=== PATIENT | male | born 1985 | race African-American/Black ===

== ENCOUNTER 2022-11-21 23:20 | Emergency (ER) | payer MEDICAID ==
[~2022-11-21] VITALS: Ht 175.3 cm; Wt 90.7 kg
--- NOTE | 2022-11-21 23:32 | NUR ---
Dr. Cota examining patient.
--- NOTE | 2022-11-21 23:36 | NUR ---
PT BIBA BLS TAKEN TO BED 6
[2022-11-21 23:39] VITALS: BP 118/81; PULSE 93; RESP 14; TEMP 97.9; O2SAT 100
[2022-11-21] MEDS ORDERED: ACETAMINOPHEN EXTRA STRENGTH 500 MG TAB PO ONE (23:45)
--- NOTE | 2022-11-22 00:11 | NUR ---
Patient resting in bed, A/Ox4, chest rise and fall symmetrical, no s/s of distress, on monitor, seizure pads/precautions in place
[2022-11-22] MEDS ORDERED: IBUPROFEN 600 MG TAB PO ONE (00:50)
--- NOTE | 2022-11-22 02:00 | NUR ---
Patient resting in bed, A/Ox4, chest rise and fall symmetrical, no s/s of distress, on monitor, seizure pads/precautions in place
[2022-11-22 02:14] VITALS: BP 121/87; PULSE 78; RESP 16; TEMP 98.1; O2SAT 99
--- NOTE | 2022-11-22 02:14 | NUR ---
Patient discharged with v/s stable. Written and verbal after care instructions given and explained. Patient verbalized understanding. with . All questions addressed prior to discharge. Advised to follow up with PMD.
[2022-11-23] MEDS ORDERED: CEPH-588 PO (13:29)
[2022-11-23] MEDS ORDERED: IBUP-1842 PO (13:29)
[2022-11-23] MEDS ORDERED: SULF-59 PO (13:29)
== END 2022-11-22 02:14 | disposition home or self-care (01) ==
LOC: MED 23:20
DX: R51.9 Headache, unspecified (principal); F10.90 Alcohol use, unspecified, uncomplicated; Y90.9 Presence of alcohol in blood, level not specified
CPT/HCPCS: 99283

== ENCOUNTER 2022-11-23 12:21 | Emergency (ER) | payer MEDICAID ==
[~2022-11-23] VITALS: Ht 177.8 cm; Wt 93.0 kg
[2022-11-23 12:36] VITALS: BP 129/90; PULSE 90; RESP 18; TEMP 98.5; O2SAT 98
[2022-11-23] MEDS ORDERED: SULF-59 PO (13:29)
[2022-11-23] MEDS ORDERED: IBUP-1842 PO (13:29)
[2022-11-23] MEDS ORDERED: CEPH-588 PO (13:29)
[2022-11-23] MEDS ORDERED: IBUPROFEN 600 MG TAB PO ONE (13:30)
--- NOTE | 2022-11-23 15:00 | NUR ---
Patient discharged with v/s stable. Written and verbal after care instructions given and explained. Patient verbalized understanding. Ambulatory with steady gait. All questions addressed prior to discharge. Advised to follow up with PMD. LEFT WITHOUT ACI
== END 2022-11-23 15:00 | disposition home or self-care (01) ==
LOC: MED 12:21
DX: L03.114 Cellulitis of left upper limb (principal); L03.113 Cellulitis of right upper limb; F17.210 Nicotine dependence, cigarettes, uncomplicated; Z79.899 Other long term (current) drug therapy
CPT/HCPCS: 99283